=== PATIENT | female | born 1945 | race Caucasian/White ===

== ENCOUNTER 2020-04-19 11:25 | Emergency (ER) | payer MEDICARE ==
[~2020-04-19] VITALS: Ht 167.6 cm; Wt 80.4 kg
[2020-04-19 13:00] LABS: BASO % 0 % (0-3); EOS % 1 % (0-3); HEMATOCRIT 44.2 % (36.0-47.0); HEMOGLOBIN 14.4 g/dL (12.0-15.5); LYMPH # 1.4 x10^3/uL (1.0-4.8); LYMPH % 22 % (24-48); MEAN CORPUSCULAR HEMOGLOBIN 30 pg (25-35); MEAN CORPUSCULAR HGB CONC 33 g/dL (31-37); MEAN CORPUSCULAR VOLUME 93 fL (79-100); MONO # 0.7 x10^3/uL (0.0-1.1); MONO % 11 % (0-9); NEUT # 4.2 x10^3uL (1.8-7.7); NEUT % 66 % (31-73); PLATELET COUNT 137 x10^3/uL (140-400); RED BLOOD COUNT 4.77 x10^6/uL (3.50-5.40); RED CELL DISTRIBUTION WIDTH 14.1 % (11.5-14.5); WHITE BLOOD COUNT 6.3 x10^3/uL (4.0-11.0)
--- NOTE | 2020-04-19 13:01 | PHYS DOC ---
Past History Past Medical History: High Cholesterol, Hypertension, Hypothyroid Alcohol Use: None General Adult EDM: Chief Complaint: MECHANICAL FALL HPI: HPI: 74-year-old female presents after fall and syncopal episode. The patient was at a . The last thing she remembers is that she went to go down the steps and then she woke up on the ground with her family attending her. She has right sided head pain and some neck stiffness. She also has right knee pain and right shoulder pain. No other symptoms or concerns at this time. Review of Systems: Review of Systems: Constitutional: Denies fever or chills. Fall. Eyes: Denies change in visual acuity HENT: Denies nasal congestion or sore throat Respiratory: Denies cough or shortness of breath Cardiovascular: Denies chest pain or edema GI: Denies abdominal pain, nausea, vomiting, bloody stools or diarrhea : Denies dysuria Musculoskeletal: Denies back pain or joint pain Integument: Denies rash Neurologic: Syncope. mild right-sided headache. Denies focal weakness or sensory changes Endocrine: Denies polyuria or polydipsia Lymphatic: Denies swollen glands Psychiatric: Denies depression or anxiety Allergies: Allergies: Allergies Coded Allergies Type Severity Reaction Last Updated Verified clopidogrel Allergy Unknown 04/19/20 Yes Physical Exam: PE: Constitutional: Well developed, well nourished, no acute distress, non-toxic appearance. [] HENT: Normocephalic, atraumatic, bilateral external ears normal, oropharynx moist, no oral exudates, nose normal. [] Eyes: PERRLA, EOMI, conjunctiva normal, no discharge. [] Neck: Normal range of motion, no tenderness, supple, no stridor. [] Cardiovascular: Heart rate regular rhythm, no murmur [] Lungs & Thorax: Bilateral breath sounds clear to auscultation [] Abdomen: Bowel sounds normal, soft, no tenderness, no masses, no pulsatile masses. [] Skin: Warm, dry, no erythema, no rash. [] Back: No tenderness, no CVA tenderness. [] Extremities: No tenderness, no cyanosis, no clubbing, ROM intact, no edema. [] Neurologic: Alert and oriented X 3, normal motor function, normal sensory function, no focal deficits noted. [] Psychologic: Affect normal, judgement normal, mood normal. [] Current Patient Data: Vital Signs: Vital Signs Date Time Temp Pulse Resp B/P (MAP) Pulse Ox O2 Delivery O2 Flow Rate FiO2 04/19/20 11:26 98.4 76 16 160/74 (102) 97 Room Air EKG: EKG: Sinus rhythm, rate 75, normal axis, no ST elevations or depressions, right bundle branch block. [] Radiology/Procedures: Radiology/Procedures: [] Impressions: AP chest. HISTORY: Syncope AP view was taken of the chest. Lungs are clear. There is no pneumothorax or pleural effusion. Heart is normal in size. IMPRESSION: 1. No acute chest disease. Electronically signed by: Sarkis Sheriff MD (04/19/2020 1:13 PM) [id number] DICTATED AND SIGNED BY: SARKIS SHERIFF MD DATE: 04/19/20 1313 CC: REJI MEJIA DO; JJ PAZ DO ~ T HEAD AND CERVICAL SPINE WO Date: 04/19/2020 12:27 PM Clinical Indication: fall down stairs, pain Comparison: None. Technique: 5 mm axial tomographic images were obtained of the head without contrast. These were viewed on brain and bone windows. Noncontrast CT of the cervical spine was performed. Sagittal and coronal reformats were performed and evaluated. One or more of the following dose reduction techniques were utilized: Automated exposure control (AEC), Adjustment of mA and/or kV according to patient size, Use of iterative reconstruction technique such as ASiR, CT scan done according to ALARA and image gently/image wisely HEAD FINDINGS: Mild generalized cerebral and cerebellar volume loss. Mild nonspecific periventricular hypoattenuation, most commonly seen with chronic small vessel ischemic disease. No intra- or extra-axial mass or fluid collection. No acute hemorrhage. The ventricles are normal in size, shape, and morphology. The collins-white matter junction is normal. The basilar cisterns are patent. The visualized paranasal sinuses are normal. The visualized portions of the orbits and globes are normal. The mastoid air cells are clear. No aggressive osseous lesion or fracture. CERVICAL SPINE FINDINGS: The cervical spine is normally aligned. No acute fracture. No aggressive lytic or blastic osseous lesions. Mild to moderate multilevel degenerative disc space height loss. Multilevel mild spinal canal stenosis secondary to disc protrusions and marginal osteophytes. Multilevel mild and moderate neuroforaminal narrowing secondary to uncovertebral arthrosis. Multilevel mild and moderate facet arthrosis. The thyroid gland is atrophic. No cervical lymphadenopathy. Bilateral carotid atherosclerosis. The visualized aerodigestive tract is normal. The visualized portions of the lungs are clear. IMPRESSION: 1. No acute intracranial process. 2. No acute cervical spine fracture. Electronically signed by: Jony Reed MD (04/19/2020 1:12 PM) [id number] DICTATED AND SIGNED BY: JONY REED MD DATE: 04/19/20 1312 CC: REIJ MEJIA DO; JJ PAZ DO ~ Examination: 3 views of the right knee and 2 views of the right shoulder HISTORY: History of fall COMPARISON: None available FINDINGS: Moderate joint space loss identified in the medial, lateral, patellofemoral compartments of the knee joint. Humerus head is within the glenoid. Moderate joint space loss identified in the glenohumeral joint, acromioclavicular joint. Impression: 1. No acute osseous findings. 2. Tricompartment degenerative changes of the knee. 3. Moderate degenerative changes glenohumeral joint, acromioclavicular joint. Electronically signed by: Christiano Valdovinos MD (04/19/2020 1:20 PM) [id number] DICTATED AND SIGNED BY: CHRISTIANO VALDOVINOS MD DATE: 04/19/20 1320 CC: REJI MEJIA DO; JJ PAZ DO ~ Heart Score: Risk Factors: Risk Factors: DM, Current or recent (<one month) smoker, HTN, HLP, family history of CAD, obesity. Risk Scores: Score 0 - 3: 2.5% MACE over next 6 weeks - Discharge Home Score 4 - 6: 20.3% MACE over next 6 weeks - Admit for Clinical Observation Score 7 - 10: 72.7% MACE over next 6 weeks - Early Invasive Strategies Course & Med Decision Making: Course & Med Decision Making Pertinent Labs and Imaging studies reviewed. (See chart for details) The patient's labs are unremarkable. Her urinalysis is negative for infection. Her radiology results were all negative for acute findings. It seems most likely that the patient had a mechanical fall but may have had loss of consciousness when she hit the floor. She is alert and oriented completely at this time. She is stable for discharge. [] Dragon Disclaimer: Dragon Disclaimer: This electronic medical record was generated, in whole or in part, using a voice recognition dictation system. Departure Departure: Impression: Primary Impression: Fall Qualified Codes: W19.XXXA - Unspecified fall, initial encounter Additional Impression: Concussion Qualified Codes: S06.0X1A - Concussion with loss of consciousness of 30 minutes or less, initial encounter Disposition: 01 DC HOME SELF CARE/HOMELESS Condition: STABLE Referrals: JJ PAZ DO (PCP) Patient Instructions: Concussion and Brain Injury, [id number] Scripts Hydrocodone Bit/Acetaminophen (NORCO 5-325 TABLET) 1 Each Tablet 1 TAB PO PRN Q6HRS PRN for PAIN, #10 TAB 0 Refills Prov: REJI MEJIA DO 04/19/20 REJI MEJIA DO Apr 19, 2020 13:01
[2020-04-19 13:09] LABS: CALCIUM 9.5 mg/dL (8.5-10.1); CREATININE 0.9 mg/dL (0.6-1.0); POTASSIUM 3.9 mmol/L (3.5-5.1)
[2020-04-19 13:15] LABS: ALBUMIN 3.5 g/dL (3.4-5.0); ALBUMIN/GLOBULIN RATIO 1.1 (1.0-1.7); TOTAL BILIRUBIN 0.5 mg/dL (0.2-1.0); TOTAL PROTEIN 6.7 g/dL (6.4-8.2)
--- NOTE | 2020-04-19 13:15 | RAD ---
CT HEAD AND CERVICAL SPINE WO Date: 04/19/2020 12:27 PM Clinical Indication: fall down stairs, pain Comparison: None. Technique: 5 mm axial tomographic images were obtained of the head without contrast. These were viewed on brain and bone windows. Noncontrast CT of the cervical spine was performed. Sagittal and coronal reformats were performed and evaluated. One or more of the following dose reduction techniques were utilized: Automated exposure control (AEC), Adjustment of mA and/or kV according to patient size, Use of iterative reconstruction technique such as ASiR, CT scan done according to ALARA and image gently/image wisely HEAD FINDINGS: Mild generalized cerebral and cerebellar volume loss. Mild nonspecific periventricular hypoattenuation, most commonly seen with chronic small vessel ischemic disease. No intra- or extra-axial mass or fluid collection. No acute hemorrhage. The ventricles are normal in size, shape, and morphology. The collins-white matter junction is normal. The basilar cisterns are patent. The visualized paranasal sinuses are normal. The visualized portions of the orbits and globes are normal. The mastoid air cells are clear. No aggressive osseous lesion or fracture. CERVICAL SPINE FINDINGS: The cervical spine is normally aligned. No acute fracture. No aggressive lytic or blastic osseous lesions. Mild to moderate multilevel degenerative disc space height loss. Multilevel mild spinal canal stenosis secondary to disc protrusions and marginal osteophytes. Multilevel mild and moderate neuroforaminal narrowing secondary to uncovertebral arthrosis. Multilevel mild and moderate facet arthrosis. The thyroid gland is atrophic. No cervical lymphadenopathy. Bilateral carotid atherosclerosis. The visualized aerodigestive tract is normal. The visualized portions of the lungs are clear. IMPRESSION: 1. No acute intracranial process. 2. No acute cervical spine fracture. Electronically signed by: Ryland Narayanan MD (04/19/2020 1:12 PM) [id number]
--- NOTE | 2020-04-19 13:16 | RAD ---
AP chest. HISTORY: Syncope AP view was taken of the chest. Lungs are clear. There is no pneumothorax or pleural effusion. Heart is normal in size. IMPRESSION: 1. No acute chest disease. Electronically signed by: Sarkis Sheriff MD (04/19/2020 1:13 PM) [id number]
--- NOTE | 2020-04-19 13:22 | RAD ---
Examination: 3 views of the right knee and 2 views of the right shoulder HISTORY: History of fall COMPARISON: None available FINDINGS: Moderate joint space loss identified in the medial, lateral, patellofemoral compartments of the knee joint. Humerus head is within the glenoid. Moderate joint space loss identified in the glenohumeral joint, acromioclavicular joint. Impression: 1. No acute osseous findings. 2. Tricompartment degenerative changes of the knee. 3. Moderate degenerative changes glenohumeral joint, acromioclavicular joint. Electronically signed by: Christiano Valdovinos MD (04/19/2020 1:20 PM) [id number]
[2020-04-19 14:38] LABS: BILIRUBIN,URINE NEG (NEG); CLARITY,URINE CLEAR; COLOR,URINE STRAW; GLUCOSE,URINE NEG (NEG); NITRITE,URINE NEG (NEG); RBC,URINE OCC /HPF (0-2)
[2020-04-19 14:39] LABS: BACTERIA,URINE 0 /HPF (0-FEW); SQUAMOUS EPITHELIAL CELL,UR OCC /LPF
--- NOTE | 2020-04-19 15:04 | EKG ---
[address] [address] Test Date: 2020-04-19 Test Time: 11:32:21 Pat Name: BASSAM CARR Department: Room: Gender: F Rehab Director Occupational Therapist: JONAH : 1945 Requested By: REJI MEJIA Order Number: [id number] Reading MD: Mikhail Peters Measurements Intervals [place] Rate: 75 P: 48 WY: 196 QRS: 97 QRSD: 112 T: 26 QT: 398 QTc: 447 Interpretive Statements SINUS RHYTHM RIGHTWARD AXIS INCOMPLETE RIGHT BUNDLE BRANCH BLOCK Electronically Signed On 04-19-2020 18:49:37 [facility] by Mikhail Peters
[2020-04-19 15:10] VITALS: BP 120/55
[2020-04-19] MEDS ORDERED: HYDR-3165 PO (15:10)
== END 2020-04-19 15:20 | disposition home or self-care (01) ==
LOC: ER 11:25
DX: S06.0X1A Concussion with loss of consciousness of 30 minutes or less, initial encounter (principal); R55 Syncope and collapse; M25.561 Pain in right knee; M25.511 Pain in right shoulder; E78.00 Pure hypercholesterolemia, unspecified; I10 Essential (primary) hypertension; E03.9 Hypothyroidism, unspecified; Z88.8 Allergy status to other drugs, medicaments and biological substances; W18.39XA Other fall on same level, initial encounter; Y93.89 Activity, other specified; Y92.89 Other specified places as the place of occurrence of the external cause; Y99.8 Other external cause status
CPT/HCPCS: 36415; 70450; 71045; 72125; 73030; 73562; 80053; 81001; 84484; 85025; 93005; 99285